=== PATIENT | male | born 1975 | race Caucasian/White ===

== ENCOUNTER 2021-08-31 07:00 | Inpatient (IN) ==
[2021-08-31] MEDS ORDERED: SODIUM CHLORIDE 0.9% 1,000 ML IV ONE ×2 (11:30→18:58)
[2021-08-31] MEDS ORDERED: GLUCAGON 1 MG VIAL IM PRN (12:13)
[2021-08-31] MEDS ORDERED: DEXTROSE 10% 250 ML BAG IV PRN ×2 (12:13→13:32)
[2021-08-31] MEDS ORDERED: ACETAMINOPHEN 325 MG TABLET PO PRN (12:15)
[2021-08-31] MEDS ORDERED: ONDANSETRON 4 MG/2 ML VIAL IV PRN (12:15)
[2021-08-31 13:26] LABS: Basophils % 0.2 % (0.0-0.8); Eosinophils % 0.1 % (0.00-10.9); Hematocrit 44.5 VOL% (42.0-52.0); Hemoglobin 15.4 GM/DL (14.0-18.0); Immature Granulocytes % 0.6 %; Immature Granulocytes Absolute 0.11 #; Lymphocytes # 3.3 10*3/uL (1.4-4.0); Lymphocytes % 17.9 % (21.2-54.2); Mean Corpuscular HGB Conc 34.6 GM/DL (32-36); Mean Corpuscular Volume 91.8 FL (87-102); Mean Platelet Volume 10.5 FL (9.6-12.0); Monocytes % 7.4 % (1.7-12.7); Neutrophils % 73.8 % (38.7-73.9); Platelet Count 222 T/CUMM (130-400); Red Blood Count 4.85 MC/CUMM (3.8-5.5); Red Cell Distribution Width 12.9 % (9.3-17.3); White Blood Count 18.3 T/CUMM (4-12)
[2021-08-31 13:44] LABS: Alanine Aminotransferase 171 U/L (16-61); Albumin 3.1 G/DL (3.4-5.0); Alkaline Phosphatase 162 U/L (45-117); Aspartate Amino Transferase 60 U/L (0-37); Bilirubin,Total < 0.39 MG/DL (0.20-1.00); Blood Urea Nitrogen 50 MG/DL (7-18); Calcium 9.4 MG/DL (8.5-10.1); Carbon Dioxide 31 MMOL/L (21-32); Estimated Glom Filtration Rate 69 ML/MIN; Glucose 158 MG/DL (74-106); Osmolality,Calculated 309.3 MOS/KG (273-304); Potassium 4.5 MMOL/L (3.5-5.1); Sodium 148 MMOL/L (136-145); Total Protein 7.5 G/DL (6.4-8.2)
[2021-08-31] MEDS ORDERED: NICOTINE 21 MG/24 HR PATCH TRANSDERM SCH (14:00)
[2021-08-31] MEDS ORDERED: SODIUM CHLORIDE 0.9% 1,000 ML IV SCH (14:00)
[2021-08-31] MEDS ORDERED: INSULIN GLARGINE 100 UNIT/ML SUBCUT SCH (14:00)
[2021-08-31] MEDS: LACTATED RINGERS 1,000 ML IV SCH ×2 (14:30→22:10)
[2021-08-31] MEDS ORDERED: LORazepam 2 MG/1 ML VIAL IV PRN (14:43)
[2021-08-31 15:08] LABS: Risk Ratio 4.16; VLDL Cholesterol 24.4 MG/DL
[2021-08-31] MEDS: INSULIN LISPRO 100 UNIT/ML SUBCUT SCH ×2 (15:34→20:16)
[2021-08-31] MEDS: INSULIN GLARGINE 100 UNIT/ML SUBCUT SCH (15:34)
[2021-08-31] MEDS ORDERED: hydrALAZINE 20 MG/1 ML VIAL IV PRN (17:03)
[2021-08-31] MEDS ORDERED: ENOXAPARIN 40 MG/0.4 ML SYRINGE SUBCUT SCH (20:00)
[2021-09-01] MEDS: INSULIN LISPRO 100 UNIT/ML SUBCUT SCH ×3 (00:55→10:12)
[2021-09-01] MEDS: ALBUTEROL/IPRATROPIUM 3 ML NEB RESP TX SCH ×4 (05:03→14:30)
[2021-09-01 05:09] VITALS: BP 119/76
[2021-09-01] MEDS: LACTATED RINGERS 1,000 ML IV SCH (05:10)
[2021-09-01 06:11] LABS: Basophils % 0.1 % (0.0-0.8); Eosinophils % 0.2 % (0.00-10.9); Hematocrit 37.8 VOL% (42.0-52.0); Hemoglobin 12.7 GM/DL (14.0-18.0); Lymphocytes % 24.1 % (21.2-54.2); Mean Corpuscular HGB Conc 33.6 GM/DL (32-36); Mean Corpuscular Volume 94.7 FL (87-102); Mean Platelet Volume 10.6 FL (9.6-12.0); Monocytes % 4.1 % (1.7-12.7); Neutrophils % 70.6 % (38.7-73.9); Platelet Count 170 T/CUMM (130-400); Red Blood Count 3.99 MC/CUMM (3.8-5.5); Red Cell Distribution Width 13.1 % (9.3-17.3); White Blood Count 16.4 T/CUMM (4-12)
[2021-09-01 06:48] LABS: Alanine Aminotransferase 122 U/L (16-61); Albumin 2.4 G/DL (3.4-5.0); Alkaline Phosphatase 123 U/L (45-117); Aspartate Amino Transferase 59 U/L (0-37); Bilirubin,Total < 0.39 MG/DL (0.20-1.00); Blood Urea Nitrogen 26 MG/DL (7-18); Calcium 9.6 MG/DL (8.5-10.1); Carbon Dioxide 25 MMOL/L (21-32); Estimated Glom Filtration Rate 108 ML/MIN; Glucose 112 MG/DL (74-106); Osmolality,Calculated 286.3 MOS/KG (273-304); Potassium 3.8 MMOL/L (3.5-5.1); Sodium 141 MMOL/L (136-145); Total Protein 6.6 G/DL (6.4-8.2)
[2021-09-01] MEDS ORDERED: amLODIPine 10 MG TABLET PO SCH (09:00)
[2021-09-01] MEDS: INSULIN GLARGINE 100 UNIT/ML SUBCUT SCH (10:15)
== END 2021-09-01 15:18 | disposition home or self-care (01) | DRG 638 ==
LOC: N.CC 12:18 → SUATTDRO 12:18 → N.TELEN 09-01 04:46
PROVIDERS: ADMIT Internal Medicine; ATTEND Emergency Medicine